=== PATIENT | male | born 1990 | race Caucasian/White ===

== ENCOUNTER 2017-02-21 10:26 | Emergency (ER) | payer OTHER ==
[2017-02-21] MEDS: CEFTRIAXONE 1 GM INJ IM (13:03)
== END 2017-02-21 13:15 | disposition home or self-care (01) ==
LOC: FTE 10:26
DX: H66.93 Otitis media, unspecified, bilateral (principal)
CPT/HCPCS: 96372; 99284-25

== ENCOUNTER 2017-03-30 07:46 | Emergency (ER) | payer MEDICAID, OTHER | END 2017-03-30 08:32 | disposition home or self-care (01) | LOC: FTE 07:46 | DX: H66.003 Acute suppurative otitis media without spontaneous rupture of ear drum, bilateral (principal); J45.909 Unspecified asthma, uncomplicated | CPT/HCPCS: 99284 ==

== ENCOUNTER 2017-07-23 18:50 | Emergency (ER) | payer SELFPAY, MEDICAID | END 2017-07-23 19:00 | disposition home or self-care (01) | LOC: E/R 18:50 | DX: H66.91 Otitis media, unspecified, right ear (principal); H60.91 Unspecified otitis externa, right ear; J45.909 Unspecified asthma, uncomplicated | CPT/HCPCS: 99283 ==

== ENCOUNTER 2018-01-19 19:37 | Emergency (ER) | payer OTHER, MEDICAID | END 2018-01-19 21:10 | disposition home or self-care (01) | LOC: FTE 19:37 | DX: H92.03 Otalgia, bilateral (principal); J45.909 Unspecified asthma, uncomplicated | CPT/HCPCS: 99283; Z7502 ==

== ENCOUNTER 2018-01-25 15:13 | Emergency (ER) | payer OTHER | END 2018-01-25 18:22 | disposition home or self-care (01) | LOC: FTE 15:13 | DX: S39.011A Strain of muscle, fascia and tendon of abdomen, initial encounter (principal); J45.909 Unspecified asthma, uncomplicated; X50.1XXA Overexertion from prolonged static or awkward postures, initial encounter; Y92.9 Unspecified place or not applicable | CPT/HCPCS: 76536; 76870; 99284-25 ==

== ENCOUNTER 2018-02-01 18:51 | Emergency (ER) | payer OTHER | END 2018-02-01 21:20 | disposition home or self-care (01) | LOC: FTE 18:51 | DX: H65.03 Acute serous otitis media, bilateral (principal); J45.909 Unspecified asthma, uncomplicated | CPT/HCPCS: 99283; Z7502 ==

== ENCOUNTER 2018-04-20 16:13 | Emergency (ER) | payer OTHER | END 2018-04-20 19:07 | disposition home or self-care (01) | LOC: FTE 19:07 | DX: H92.03 Otalgia, bilateral (principal); J45.909 Unspecified asthma, uncomplicated | CPT/HCPCS: 99283; Z7502 ==

== ENCOUNTER 2018-08-07 23:54 | Emergency (ER) | payer SELFPAY, OTHER | END 2018-08-08 02:57 | disposition home or self-care (01) | LOC: FTE 08-08 02:57 | DX: H66.93 Otitis media, unspecified, bilateral (principal); J45.909 Unspecified asthma, uncomplicated | CPT/HCPCS: 99283 ==